=== PATIENT | female | born 1995 | race African-American/Black ===

== ENCOUNTER 2020-07-29 02:00 | Emergency (ER) | payer OTHER ==
[~2020-07-29] VITALS: Ht 170.2 cm; Wt 72.6 kg
[~2020-07-29 02:00] MED LIST: AMOXICILLIN 50500 M1 PO; AMOXICILLIN500 M1 PO; BACTRIM DS TAB1 EACH PO; BIRTH CONTROL; DOXYCYCLINE 10100 M1 PO; FLAGYL500 MG PO; IBUPROFEN 800800 M1 PO; IBUPROFEN 800800 MG PO; MACROBID 100 M100 M1 PO; NOHOMEMEDICATIONS; NORCO 5-325 TA1 EACH PO; ROBAXIN 750 MG750 M1 PO; ULTRAM 50MG TAB50 MG PO; VALTREX 500 MG500 M1 PO
[2020-07-29 02:12] VITALS: BP 137/87
[2020-07-29] MEDS ORDERED: PROAIR HFA8.5 GM INH (02:47)
== END 2020-07-29 02:57 | disposition short-term general hospital (02) ==
LOC: M.ERS 02:00
DX: J06.9 Acute upper respiratory infection, unspecified (principal); Z20.828 Contact with and (suspected) exposure to other viral communicable diseases; J45.909 Unspecified asthma, uncomplicated; F17.210 Nicotine dependence, cigarettes, uncomplicated

== ENCOUNTER 2020-09-15 21:44 | Emergency (ER) | payer OTHER ==
[~2020-09-15] VITALS: Ht 170.2 cm; Wt 74.8 kg
[~2020-09-15 21:44] MED LIST changes: +PROAIR HFA8.5 GM INH
[2020-09-15 22:39] LABS: INFLUENZA A ANTIGEN Positive (Negative); INFLUENZA B ANTIGEN Negative (Negative)
[2020-09-15 23:25] VITALS: BP 120/80
== END 2020-09-15 23:25 | disposition home or self-care (01) ==
LOC: M.ERS 21:44
PROVIDERS: Personal Emergency Response Attendant
DX: J10.1 Influenza due to other identified influenza virus with other respiratory manifestations (principal); Z20.822 Contact with and (suspected) exposure to COVID-19; J45.909 Unspecified asthma, uncomplicated; F17.210 Nicotine dependence, cigarettes, uncomplicated

== ENCOUNTER 2021-07-14 18:25 | Emergency (ER) | payer OTHER ==
[~2021-07-14] VITALS: Ht 157.5 cm; Wt 72.6 kg
[2021-07-14 18:58] LABS: INFLUENZA A ANTIGEN Negative (Negative); INFLUENZA B ANTIGEN Negative (Negative)
[2021-07-14] MEDS ORDERED: DECADRON4 MG PO (22:08)
[2021-07-14 22:19] VITALS: BP 128/73
== END 2021-07-14 22:20 | disposition home or self-care (01) ==
LOC: M.ERS 18:25
PROVIDERS: Physician Assistant
DX: J02.9 Acute pharyngitis, unspecified (principal); Z20.822 Contact with and (suspected) exposure to COVID-19